=== PATIENT | female | born 1950 | race Hispanic/Latino ===

== ENCOUNTER 2020-08-29 06:26 | Day surgery (SDC) | payer MEDICARE ==
[2020-08-29] MEDS ORDERED: ASPIRIN EC 325 MG TAB PO SCH (07:00)
[2020-08-29 07:18] LABS: Basophils % (Auto) 0.3 % (0.0-1.8); Eosinophils # (Auto) 0.3 K/mm3 (0.0-0.4); Eosinophils % (Auto) 5.3 % (0.0-4.3); Hematocrit 41.5 % (30.3-42.9); Hemoglobin 13.7 gm/dl (10.1-14.3); Lymphocytes # (Auto) 1.6 K/mm3 (1.2-5.4); Lymphocytes % (Auto) 29.4 % (13.4-35.0); Mean Corpuscular HGB Conc 33 % (30-34); Mean Corpuscular Volume 81 fl (79-97); Monocytes # (Auto) 0.3 K/mm3 (0.0-0.8); Monocytes % (Auto) 5.9 % (0.0-7.3); Platelet Count 170 K/mm3 (140-440); Red Blood Count 5.13 M/mm3 (3.65-5.03); Red Cell Distribution Width 14.7 % (13.2-15.2)
[2020-08-29 07:29] LABS: INR 0.98 (0.87-1.13)
[2020-08-29 07:30] LABS: Partial Thromboplastin Time 27.4 Sec. (24.2-36.6)
[2020-08-29 07:38] LABS: Blood Urea Nitrogen 21 mg/dL (7-17); Calcium 8.8 mg/dL (8.4-10.2); Hemolysis Index 47
[2020-08-29] MEDS ORDERED: SODIUM CHLORIDE 0.9% 500 ML 500 ML IV SCH (08:00)
[2020-08-29 08:11] LABS: BUN/Creatinine Ratio 42
[2020-08-29] MEDS ORDERED: VERAPAMIL 5 MG/2 ML INJ ONE (08:22)
[2020-08-29] MEDS ORDERED: HEPARIN/NS 5000 UNIT/500ML 1,000 ML IR ONE (08:22)
[2020-08-29] MEDS ORDERED: HEPARIN 10,000 UNITS/10 ML VIAL ONE (08:22)
[2020-08-29] MEDS ORDERED: NITROGLYCERIN SYRINGE 3 ML ONE (08:23)
[2020-08-29] MEDS ORDERED: LIDOCAINE (2%) 20 MG/1 ML VIAL 20 ML MDV INFILTRATI ONE (08:23)
[2020-08-29] MEDS: fentaNYL 100 MCG/2 ML INJ ONE ×2 (09:03→09:18)
[2020-08-29] MEDS: MIDAZOLAM 2 MG/2 ML INJ ONE ×2 (09:04→09:17)
--- NOTE | 2020-08-29 10:04 | Cardiac Catherization Report ---
DATE OF PROCEDURE: 08/29/2020 CARDIAC CATHETERIZATION INDICATION FOR PROCEDURE: The patient is a very pleasant 70-year-old female with recurrent chest pain, multiple risk factors including diabetes, previous PCI, who presents here for a cardiac catheterization. Risks, benefits, potential risks were explained in length prior to obtaining informed consent. DESCRIPTION OF PROCEDURE: The patient was brought to catheterization lab in a postabsorptive state, prepped and draped in sterile fashion. Due to breast surgery and right lymphadenopathy, we chose a groin approach. An 8 mL of 2% lidocaine was used to anesthetize the right groin. A standard 6-Pashto sheath was used to cannulate the right common femoral artery via modified Seldinger technique. All exchanges were performed to exchange J-tip guidewire. A JL3.5 catheter was used to engage to left main. No dampening or ventricularization. Cineangiography performed in multiple projections. JR4 catheter used to cross the aortic valve under fluoroscopic guidance. Left ventriculography performed in 30 degrees GOLDEN and 30 degrees ALBANIAN projections via hand injection, catheter was flushed. Manual pullback performed with continuous pressure monitoring. Catheter was used to engage the right coronary. No dampening or ventricularization. Cineangiography performed in multiple projections. Next, the catheter was removed from the body of wire. Sheath removed. Manual pressure used to achieve hemostasis. No immediate complications. The patient tolerated the procedure well. I directly supervised the administration of moderate sedation from 9:03 a.m. to 9:35 a.m. DATA: Aortic pressure is 150/60. LV pressure is 150. LVEDP of 18 mmHg. The patient remained in normal sinus rhythm throughout the procedure. Left ventricle reveals normal systolic performance with estimated ejection fraction of 55-60%. No evidence of aortic stenosis. CORONARY ANATOMY: This is a right dominant system. Left main without significant disease, bifurcates into left anterior descending and left circumflex. The left circumflex is a modest-sized vessel, courses AV groove. Stent in the mid left circumflex is widely patent. Large trunk is widely patent. LAD is a moderate sized vessel, courses anterior intergroove, wraps around the apex. There is a long stent in the proximal and mid LAD with 20% in-stent restenosis, but no obstructive disease identified in the LAD, diagonal, or circumflex system. Moderate nonobstructive disease. Right coronary is a large vessel, courses AV groove. Distally, bifurcates in the posterior descending and posterolateral branches. No discrete stenoses noted. CONCLUSIONS: 1. Moderate nonobstructive coronary artery disease with 20% in-stent restenosis of the LAD, patent left circumflex stents and patent right coronary and left main. 2. Preserved left ventricular systolic performance with estimated ejection fraction of 55-60%. 3. No evidence of aortic stenosis. 4. Normal LVEDP. PLAN: Continue aggressive medical therapy. Needs better diabetes control. If she continues to have chest pain, could consider adding Ranexa. Continue aspirin, statin, has not tolerated beta padmini in the past. Results of the procedure were also discussed with the patient and family. All questions were addressed. Follow up in the office. Standard groin care. TID: [id number] RECEIPT: [id number] SBM/JOHN
[2020-08-29] MEDS ORDERED: INSULIN REGULAR, HUMAN 100 UNITS/1 ML SUB-Q NR (10:12)
[2020-08-29] MEDS ORDERED: INSULIN REGULAR, HUMAN 100 UNITS/1 ML ONE (10:16)
[2020-08-29] MEDS ORDERED: fentaNYL 100 MCG/2 ML INJ IV ONE (12:44)
--- NOTE | 2020-08-29 14:04 | Short Stay Summary ---
Short Stay Documentation Date of service: 08/29/20 - History H&P: obtained from office - Allergies and Medications Current Medications: Allergies levofloxacin [From Levaquin] Allergy (Verified 08/29/20 07:05) Rash Home Medications Medication Instructions Recorded Confirmed Last Taken Type Gabapentin Enacarbil [Horizant] 900 mg PO TID 04/12/14 08/29/20 08/28/20 History 900 mg Sertraline [Zoloft] 100 mg PO DAILY 04/12/14 08/29/20 08/28/20 History 10 mg Tizanidine HCl 4 mg PO QHS 04/12/14 08/29/20 08/28/20 History 4 mg hydroCHLOROthiazide 25 mg PO DAILY 04/12/14 08/29/20 08/28/20 History [Hydrochlorothiazide] 25 mg ProAir HFA Inhaler 2 puff INHALATION PRN PRN 12/06/15 08/29/20 08/28/20 History 2 puffs Atorvastatin [Lipitor] 80 mg PO HS 08/29/20 08/29/20 08/28/20 History 80 mg Dulaglutide [Trulicity] 1 syr SQ 1XW 08/29/20 08/29/20 08/28/20 History 1 injection Ergocalciferol [Vitamin D2] 1 cap PO QWEEK 08/29/20 08/29/20 08/28/20 History 65422 units Insulin Lispro [Humalog Kwikpen 25 - 30 units SQ TID 08/29/20 08/29/20 08/28/20 History 200 UNITS/ML] 40 units Levothyroxine Sodium 137 mcg PO DAILY 08/29/20 08/29/20 08/28/20 History [Levothyroxine] 137 mcg Active Medications Aspirin (Aspirin Ec 325 Mg Tab) 325 mg PO ONCE MATTY Stop: 08/29/20 16:00 Last Admin: 08/29/20 08:05 Dose: Not Given Documented by: Sodium Chloride (Nacl 0.9% 500 Ml) 500 mls @ 50 mls/hr IV DIRECT MATTY Stop: 08/29/20 17:59 Last Admin: 08/29/20 07:47 Dose: 50 mls/hr Documented by: - Physical exam Integumentary: other (Cath site right groin inspected, TelfaTegaderm in place, no bleeding or hematoma noted. distal PMS intact) - Brief post op/procedure progress note Date of procedure: 08/29/20 Pre-op diagnosis: Recurrent chest pain Post-op diagnosis: other (Nonobstructive coronary artery disease) Anesthesia: local Estimated blood loss: minimal Condition: stable - Disposition Condition at discharge: Good Disposition: DC-01 TO HOME OR SELFCARE - Discharge Diagnoses (1) Normal coronary arteries Status: Acute Short Stay Discharge Plan Activity: advance as tolerated Diet: low fat, low cholesterol, low salt Wound: open to air, keep clean and dry, per your surgeon's advice Follow up with: MAE GODINEZ [Other] - 7 Days DEVEN GUTIERREZ MD [Staff Physician] - 7 Days (Follow-up with Dr. Ruiz Gutierrez in our [place] office on 09/14/2020 at 1:45 PM. #[id number]) Forms: CardCath PCI D/C Instructions
[2020-08-29 14:19] VITALS: BP 128/56
--- NOTE | 2020-09-01 11:32 | Electrocardiograph Report ---
[facility] Test Date: 2020-08-29 Test Time: 07:34:55 Pat Name: CARLOS VELA Department: Room: Gender: F [employer]ator: VANDANA : 1950 Requested By: DEVEN GUTIERREZ Order Number: [id number] Reading MD: Bret Arcos Measurements Intervals [place] Rate: 68 P: 16 TX: 166 QRS: 46 QRSD: 109 T: 55 QT: 438 QTc: 468 Interpretive Statements Sinus rhythm No previous ECG available for comparison Electronically Signed On 09-01-2020 11:32:03 EDT by Bret Arcos
== END 2020-08-29 14:46 | disposition home or self-care (01) ==
LOC: CATHLABREC 06:26
PROVIDERS: ATTEND Internal Medicine
DX: R07.89 Other chest pain (principal); R94.39 Abnormal result of other cardiovascular function study; I25.10 Atherosclerotic heart disease of native coronary artery without angina pectoris; I13.0 Hypertensive heart and chronic kidney disease with heart failure and stage 1 through stage 4 chronic kidney disease, or unspecified chronic kidney disease; E11.22 Type 2 diabetes mellitus with diabetic chronic kidney disease; N18.9 Chronic kidney disease, unspecified; I50.33 Acute on chronic diastolic (congestive) heart failure; E11.51 Type 2 diabetes mellitus with diabetic peripheral angiopathy without gangrene; J43.9 Emphysema, unspecified; M19.90 Unspecified osteoarthritis, unspecified site; E03.9 Hypothyroidism, unspecified; F32.9 Major depressive disorder, single episode, unspecified; F41.9 Anxiety disorder, unspecified; D64.9 Anemia, unspecified; Z83.3 Family history of diabetes mellitus; Z79.899 Other long term (current) drug therapy; Z88.8 Allergy status to other drugs, medicaments and biological substances; Z79.4 Long term (current) use of insulin; Z87.891 Personal history of nicotine dependence; Z98.49 Cataract extraction status, unspecified eye; Z95.5 Presence of coronary angioplasty implant and graft; Z98.890 Other specified postprocedural states; Z85.3 Personal history of malignant neoplasm of breast; Z90.13 Acquired absence of bilateral breasts and nipples; Z90.710 Acquired absence of both cervix and uterus; Z96.612 Presence of left artificial shoulder joint; Z80.8 Family history of malignant neoplasm of other organs or systems; Z82.49 Family history of ischemic heart disease and other diseases of the circulatory system
CPT/HCPCS: 36415; 80048; 82962; 85025; 85610; 85730; 93005; 93458; 99156; 99157; C1894; J1644; J2250; J3010; J7040; 96374; J1815; Q9967